=== PATIENT | female | born 1975 | race Caucasian/White ===

== ENCOUNTER 2023-10-07 15:22 | Emergency (ER) | payer BC ==
[~2023-10-07] VITALS: Ht 170.2 cm; Wt 95.0 kg
[2023-10-07 15:23] VITALS: BP 134/72; TEMP 97; O2SAT 99
[2023-10-07] MEDS ORDERED: MULT-90 PO (15:36)
[2023-10-07] MEDS ORDERED: CETI10CH PO (15:36)
[2023-10-07] MEDS ORDERED: ALBU2.5V10 NEB (15:36)
[2023-10-07] MEDS ORDERED: SERT-141 PO (15:36)
[2023-10-07] MEDS ORDERED: BUPR150T12 PO (15:36)
== END 2023-10-07 17:21 | disposition home or self-care (01) ==
LOC: M ED 15:22
DX: S83.412A Sprain of medial collateral ligament of left knee, initial encounter (principal); W19.XXXA Unspecified fall, initial encounter; X50.0XXA Overexertion from strenuous movement or load, initial encounter; F10.10 Alcohol abuse, uncomplicated; Y92.019 Unspecified place in single-family (private) house as the place of occurrence of the external cause; Y93.89 Activity, other specified; Y99.9 Unspecified external cause status; Z79.52 Long term (current) use of systemic steroids; Z79.899 Other long term (current) drug therapy